=== PATIENT | female | born 1990 | race Two or more races ===

== ENCOUNTER 2017-06-12 22:43 | Emergency (ER) | payer MEDICAID ==
[~2017-06-12] VITALS: Ht 157.5 cm; Wt 69.9 kg
[2017-06-12 22:56] VITALS: BP 131/62
[2017-06-12 23:35] LABS: Basophils # (auto) 0 uL; Basophils % (auto) 0.4 % (0.0-2.0); Eosinophils # (auto) 0.1 uL; Eosinophils % (auto) 0.7 % (0.0-7.0); Hematocrit 40.7 % (36.0-46.0); Hemoglobin 13.3 g/dL (12.2-16.2); Lymphocytes # (auto) 2.9 uL; Lymphocytes % (auto) 27.8 % (10.0-50.0); Mean Corpuscular Hemoglobin 27.1 pg (28.0-32.0); Mean Corpuscular Hgb Conc. 32.6 g/dL (32.0-36.0); Mean Corpuscular Volume 83.1 fL (80.0-100.0); Monocytes # (auto) 0.4 uL; Monocytes % (auto) 4.1 % (0.0-12.0); Platelet Count (auto) 316 10^3/uL (140-450); Red Cell Distribution Width 14.4 % (11.8-14.3); White Blood Cell 10.5 10^3/uL (4.4-10.8)
[2017-06-12 23:48] LABS: BUN/Creatinine Ratio 12.2; Calcium 8.5 mg/dL (8.5-10.1)
== END 2017-06-13 07:05 | disposition left against medical advice (07) ==
LOC: EDBD 22:43 → ER 22:43
DX: F10.10 Alcohol abuse, uncomplicated (principal); Z53.21 Procedure and treatment not carried out due to patient leaving prior to being seen by health care provider
CPT/HCPCS: 36415; 73080; 80048; 80320; 84702; 85025

== ENCOUNTER 2019-11-10 21:38 | Emergency (ER) | payer MEDICAID ==
[~2019-11-10] VITALS: Ht 157.5 cm; Wt 65.8 kg
[2019-11-10 21:54] VITALS: BP 181/121
== END 2019-11-10 23:02 | disposition left against medical advice (07) ==
LOC: ER 21:40
DX: S00.83XA Contusion of other part of head, initial encounter (principal); Z53.21 Procedure and treatment not carried out due to patient leaving prior to being seen by health care provider; Y08.89XA Assault by other specified means, initial encounter; Y93.89 Activity, other specified; Y92.89 Other specified places as the place of occurrence of the external cause; Y99.8 Other external cause status
CPT/HCPCS: 70450; 70486; 72125